=== PATIENT | female | born 1995 | race Caucasian/White ===

== ENCOUNTER → 2017-08-29 12:00 | Outpatient (CLI) | payer OTHER, SELFPAY ==
--- NOTE | 2017-08-29 12:00 | DT_ITS ---
This patient was seen during an EMR downtime August 26, 2017 - September 02, 2017. This patient may have a combination of paper and electronic documentation or all paper documentation. All documentation is viewable within the e-chart portion of [employer] for each patient visit.
[2017-09-03 06:21] LABS: Cholesterol 131 mg/dL (200); Glucose 78 mg/dL (74-106); Hemoglobin A1c 5.1 % (4.2-6.3); High Density Lipoprotein 64 mg/dL; Triglycerides 47 mg/dL; Very Low Density Lipoprotein 9 mg/dL (5-40)
== END ==
PROVIDERS: Visit Provider Obstetrics & Gynecology
DX: Z12.4 Encounter for screening for malignant neoplasm of cervix (principal); A60.04 Herpesviral vulvovaginitis; Z13.29 Encounter for screening for other suspected endocrine disorder
CPT/HCPCS: 36415; 80061; 82947; 83036

== ENCOUNTER → 2017-08-30 23:45 | Outpatient (CLI) | payer OTHER, SELFPAY ==
--- NOTE | 2017-08-30 23:45 | DT_ITS ---
This patient was seen during an EMR downtime August 26, 2017 - September 02, 2017. This patient may have a combination of paper and electronic documentation or all paper documentation. All documentation is viewable within the e-chart portion of [employer] for each patient visit.
[2017-09-07 03:07] LABS: HSV 1 By PCR Negative (Negative)
[2017-09-08 10:20] LABS: HSV 2 By PCR Negative (Negative)
== END ==
PROVIDERS: Visit Provider Obstetrics & Gynecology
DX: A60.04 Herpesviral vulvovaginitis (principal)
CPT/HCPCS: 87529

== ENCOUNTER → 2019-10-20 | Outpatient (CLI) | payer BC, SELFPAY ==
[2017-03-09 01:31] VITALS: BMI 32.8
[2019-10-24 10:46] LABS: HPV Reflexed? NOT INDICATED
== END | disposition home or self-care (01) ==
PROVIDERS: Visit Provider Obstetrics & Gynecology
DX: Z12.4 Encounter for screening for malignant neoplasm of cervix (principal)
CPT/HCPCS: 88175; G0145

== ENCOUNTER → 2019-11-23 13:48 | Outpatient (CLI) | payer BC, SELFPAY ==
[2019-11-26 09:04] LABS: Chlamydia By Nucleic Acid AMP Negative (Negative)
[2019-11-26 09:17] LABS: Gonococcus By Nucleic Acid AMP Negative (Negative)
== END ==
PROVIDERS: Visit Provider Obstetrics & Gynecology
DX: Z11.3 Encounter for screening for infections with a predominantly sexual mode of transmission (principal)
CPT/HCPCS: 87491; 87591

== ENCOUNTER → 2020-06-28 | Outpatient (CLI) | payer BC, SELFPAY ==
[2017-03-09 01:31] VITALS: BMI 32.8
== END | disposition home or self-care (01) ==
LOC: LABSPEC 15:20
PROVIDERS: Visit Provider Student in an Organized Health Care Education/Training Program
DX: N76.0 Acute vaginitis (principal)

== ENCOUNTER → 2021-02-14 15:51 | Outpatient (CLI) | payer BC, SELFPAY ==
[2021-02-14 17:45] LABS: Absolute Lymphocyte Count 1.87 X10^3/uL (0.83-4.51); Absolute Neutrophil Count 3.4 X10^3/uL (2.0-7.7); Basophil# 0.03 X10^3/uL; Basophil% 0.5 % (0-1); Eosinophil# 0.03 X10^3/uL; Eosinophils% 0.5 % (0-5); Hemoglobin 12.9 g/dL (12.0-15.0); Lymphocyte # 1.87 X10^3/ul (0.83-4.51); Mean Corp Hgb Conc 33.1 g/dL (32-36); Mean Corpuscular Hgb 29.5 pg (27.0-32.0); Mean Corpuscular Volume 89.2 fL (81-99); Mean Platelet Vol. 11.1 fl (6.2-12.0); Monocyte# 0.51 X10^3/uL; Monocyte% 8.7 % (0-10); NRBC Flagged by Analyzer 0 % (0-5); Neutrophil # 3.38 X10^3/uL (2.7-7.7); Platelet Count 244 K/mm3 (150-450); RBC Distribution Width CV 12.1 % (11.6-14.6); RBC Distribution Width SD 39.9 fl (35.1-43.9); Red Blood Count 4.37 M/mm3 (4.2-5.4); White Blood Count 5.8 K/mm3 (4.4-11.0)
[2021-02-14 18:07] LABS: Estradiol 153.7 pg/mL
[2021-02-14 18:14] LABS: Color, Urine Yellow (Yellow); Glucose, Dipstick Normal (Normal); Ketone-Dipstick Negative (Negative); Leukocyte Esterase-Dipstick Negative /ul (Negative); Nitrite-Dipstick Negative (Negative); Occult Blood-Urine Negative /ul (Negative); Protein-Dipstick Negative (Negative); Urine Bilirubin Dipstick Negative (Negative); Urine Clarity Clear (Clear); Urine Urobilinogen Normal (Normal); Urine pH 6.5 (5.0 - 8.0)
[2021-02-14 18:53] LABS: Amphetamine Urine VISTA NEGATIVE (<1000 ng/mL); Barbiturate Urine VISTA NEGATIVE (< 200 ng/mL); Benzodiazepine Urine VISTA NEGATIVE (< 200 ng/mL); Cocaine Urine VISTA NEGATIVE (< 300 ng/mL); Ecstacy Urine VISTA NEGATIVE (< 500 ng/mL); Methadone Urine VISTA NEGATIVE (< 300 ng/mL); PCP Urine VISTA NEGATIVE (< 25 ng/mL); THC Urine VISTA NEGATIVE (< 50 ng/mL); Vista UDS pH Range 6
[2021-02-15 09:06] LABS: HIV - WCH Non-Reactive (Nonreactive); Hepatitis B Surface Antigen Non-Reactive (Nonreactive); Hepatitis C Antibody Non-Reactive (Nonreactive); Progesterone Level 6.98 ng/mL (See Comment); Syphilis Antibodies Non-reactive
[2021-02-18 13:07] LABS: Chlamydia By Nucleic Acid AMP Negative (Negative)
[2021-02-18 13:43] LABS: Gonococcus By Nucleic Acid AMP Negative (Negative)
== END ==
PROVIDERS: Visit Provider Obstetrics & Gynecology
DX: Z34.81 Encounter for supervision of other normal pregnancy, first trimester (principal)
CPT/HCPCS: 36415; 80307; 81002; 82670; 84144; 84443; 85025; 86703; 86762; 86780; 86803; 87086; 87088; 87340; 87491; 87591

== ENCOUNTER → 2021-03-02 16:25 | Outpatient (CLI) | payer BC, SELFPAY ==
[2021-03-02 17:36] LABS: Estradiol 638.8 pg/mL
[2021-03-02 18:20] LABS: Progesterone Level 201.48 ng/mL (See Comment)
== END ==
LOC: LAB.FUTURE 16:26 → LAB 16:41
PROVIDERS: Visit Provider Obstetrics & Gynecology
DX: O26.891 Other specified pregnancy related conditions, first trimester (principal); E28.9 Ovarian dysfunction, unspecified; Z3A.00 Weeks of gestation of pregnancy not specified
CPT/HCPCS: 36415; 82627; 82670; 84144; 82626

== ENCOUNTER → 2021-03-22 08:54 | Outpatient (CLI) | payer BC, SELFPAY ==
[2021-03-22 09:58] LABS: Progesterone Level 52.72 ng/mL (See Comment)
[2021-03-22 11:03] LABS: Estradiol 1877.9 pg/mL
== END ==
PROVIDERS: Visit Provider Obstetrics & Gynecology
DX: O20.0 Threatened abortion (principal)
CPT/HCPCS: 36415; 82627; 82670; 84144; 82626

== ENCOUNTER 2021-04-12 15:01 | Outpatient (CLI) | payer BC, SELFPAY ==
[2021-04-12 17:52] LABS: Progesterone Level 118.18 ng/mL (See Comment)
== END 2021-04-12 23:59 | disposition short-term general hospital (02) ==
LOC: WOBLAB 15:03
PROVIDERS: Visit Provider Obstetrics & Gynecology
DX: Z34.81 Encounter for supervision of other normal pregnancy, first trimester (principal)
CPT/HCPCS: 36415; 84144

== ENCOUNTER → 2021-07-25 | Outpatient (CLI) | payer BC, SELFPAY ==
[2021-07-25 14:01] LABS: Hematocrit 34.6 % (37-47); Hemoglobin 11.7 g/dL (12.0-15.0); Mean Corp Hgb Conc 33.8 g/dL (32-36); Mean Corpuscular Hgb 31.5 pg (27.0-32.0); Mean Corpuscular Volume 93.3 fL (81-99); Mean Platelet Vol. 10.4 fl (6.2-12.0); Platelet Count 174 K/mm3 (150-450); RBC Distribution Width CV 13.4 % (11.6-14.6); RBC Distribution Width SD 45.4 fl (35.1-43.9); Red Blood Count 3.71 M/mm3 (4.2-5.4)
[2021-07-25 15:35] LABS: Glucose Challenge Gest 1H 50g 130 mg/dL (70-140)
== END | disposition home or self-care (01) ==
PROVIDERS: Visit Provider Obstetrics & Gynecology
DX: Z34.83 Encounter for supervision of other normal pregnancy, third trimester (principal)
CPT/HCPCS: 36415; 82950; 85027; 86850

== ENCOUNTER → 2021-09-22 | Outpatient (CLI) | payer OTHER, SELFPAY | END | disposition home or self-care (01) | LOC: LABSPEC 16:16 | PROVIDERS: Visit Provider Obstetrics & Gynecology | DX: Z36.85 Encounter for antenatal screening for Streptococcus B (principal) | CPT/HCPCS: 87081 ==

== ENCOUNTER 2021-10-12 06:35 | Inpatient (IN) | payer OTHER, SELFPAY ==
[2021-10-12] VITALS (18 sets, daily range): BP systolic 90–109; BP diastolic 51–67; PULSE 62–86; RESP 14–18; TEMP 36.3–36.8; O2SAT 95–100; BMI 32.9
[2021-10-12] MEDS: Lactated Ringers 1,000 ML 999 ML IV (06:40)
[2021-10-12] MEDS: Acetaminophen 500 MG Tablet 1000 MG PO ×2 (06:58→18:31)
[2021-10-12 07:02] LABS: Absolute Lymphocyte Count 2.08 X10^3/uL (0.83-4.51); Absolute Neutrophil Count 4.8 X10^3/uL (2.0-7.7); Basophil# 0.02 X10^3/uL; Basophil% 0.3 % (0-1); Hematocrit 36.2 % (37-47); Hemoglobin 12.3 g/dL (12.0-15.0); Lymphocyte # 2.08 X10^3/ul (0.83-4.51); Lymphocyte % 28.7 % (19-41); Mean Corpuscular Hgb 30.8 pg (27.0-32.0); Mean Corpuscular Volume 90.5 fL (81-99); Mean Platelet Vol. 11.5 fl (6.2-12.0); Monocyte# 0.34 X10^3/uL; Monocyte% 4.7 % (0-10); NRBC Flagged by Analyzer 0 % (0-5); Neutrophil # 4.79 X10^3/uL (2.7-7.7); Neutrophil % 65.9 % (47-70); Platelet Count 135 K/mm3 (150-450); RBC Distribution Width CV 12.7 % (11.6-14.6); RBC Distribution Width SD 41.9 fl (35.1-43.9); White Blood Count 7.3 K/mm3 (4.4-11.0)
[2021-10-12] MEDS: Sodium Citrate/Citric Acid 30 ML UDC PO (07:17)
[2021-10-12] MEDS: Cefazolin 2 GM in 0.9% Normal Saline 100 ML IV (07:35)
--- NOTE | 2021-10-12 07:40 | HP.PCM_ITS ---
History and Physical Date of Admission: 10/12/21 ACOG ANTEPARTUM RECORD - HISTORY AND PHYSICAL (10/12/2021) Name: SUSI PADILLA History of this : This is a 26 year old [id number] presents at 40 wks + 1 days gestation in active labor. care is remarkable for patient desiring an elective with sterilization. 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 : 1995 Age: 26 Address: [address] [place] [address] Phone: (H) [phone] (O) [phone] Insurance Carrier: [facility] [id number] Emergency Contact: TRAM PADILLA [phone] ...................................................................... Final WELLINGTON: 10/11/21 By Ultrasound: 5 weeks 6 days PARITY: (G-Total Pregnancies P-Fullterm,Premature,Induced AB,Spont AB, Ectopics, Multiple,Living) WELL[place] CONFIRMATION: By LMP: 12/22/20 Initial Exam: 10/11/21 By First Ultrasound Exam: 10/11/21 Final WELLINGTON: 10/11/21 OB PROBLEM LIST: ALLERGIC TO SULFA! 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 Job Description - [employer] Illicit Drug Use - denies use of street drugs Sexual Activity - single sexual partner and Residence - Lives with Place of - [place], [place] Hours Worked - FT Spouse-Sig Other Name - Tram Padilla Spouse-Sig Other Occupation - Self-Employed Spouse-Sig Other Phone No - [phone] Children Name(s) - Puneet '17 PRIOR DELIVERY HISTORY DEL DATE GEST LAB WT LB WT OZ TYPE ANES LABOR TX 17 Mar 10 40 31 8 15 Vacuu Epidural No 30 Sep 21 6 0 0 0 Sab None No ANTEPARTUM FLOW CHART VISIT RTC FU F F LA U U DATE WK MD WKS HT PN HR M SS BP ED WT LA GL D EF ST __ ____ ___ __ __ ___ __ __ __ ___ __ __ __ ___ __ Sep SHM 1 39 V + + 124/86 sl 198 - - Sep 39 SHM 1 38 V + + 104/76 sl 198 1+ - 3 50 -3 08 Royce 38 SHM 1 38 V + + 102/74 sl 201 tr - 1+ 50 -3 Sep SHM 1 37 V + + 120/72 1+ 198 tr - 1 50 -3 14 Aug SHM 2 34 V + + 90/62 1+ 198 - - 22 August 32 SHM 2 33 V + + 100/60 sl 196 1+ - 17 August 21 SHM 2 31 ? + + 100/70 sl 193 tr - 03 August 19 SHM 2 31 on + 96/60 sl 189 tr - Jul 16 SHM 4 24 ? + + 110/74 0 187 tr - 02 Jun 11 SHM 4 20 + O 102/60 0 182 tr - Apr 07 SHM 4 + o 108/68 0 173 ne ne Mar 03 JMW 4 U+ O 110/70 0 172 - - ANTEPARTUM NOTE(S): Oct 11 2021: Here for Pre-op for Primary Oct 10 2021: see note Sep 29 2021: Ctxs-occas, Good FM.occas tingling in fingers Sep 22 2021: see note Sep 05 2021: getting more uncomfortable Aug 22 2021: doing well Aug 08 2021: see note Jul 25 2021: Jun 23 2021: glucola given May 24 2021: comp u/s today Apr 12 2021: Feels well, Mar 15 2021: doing well COMPREHENSIVE ANTEPARTUM NOTE(S): Oct 11 2021: Susi presents here today at 40 weeks and plans to have questions answered and sign consents for Primary and BTO scheduled for Saturday10/13/21 at 1200 with JM. Good FM and reports periodic fatigue. JDRN Oct 11 2021: , bilateral salpingectomy consents reviewed. Discussed risks, benefits, labor as alternative. Consents signed. Pt questions answered to her satisfaction and ERAS prep, anticipated hospitalization reviewed. Oct 10 2021: Susi is here for visit. She is s/p Covid and doing pretty well except for continued congestion. Interested in cervix ck today. Hoping for labor. Induction now on Saturday. Good mvmt and minimal edema. Off work at this time which has helped signficantly with edema. LMT Oct 10 2021: Membranes stripped. Pt inquires about scheduled with tubal vs. IOL. Reviewed risks, benefits for mother and baby for . Pt understands unscheduled more risky of delivery modes. Sep 27 2021: H taken to OB. tkg Sep 22 2021: US today EFW 4337g - 9lb9oz (90th%), cephalic, BRODIE 9.8cm. HC/AC 0.97. Recommend IOL at at 39-40wga. 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 GBS obtained. Sep 22 2021: Susi is here for visit. She is more uncomfortable and wanting to get a note to be off work. GBS today. LARC declined. Increased edema. LMT Induction paperwork faxed and scheduled for 10/05 @ 7 am. LMT Sep 05 2021: Reviewed FM, PTL, PROM. GBS next visit. LMT Sep 05 2021: Reviewed IOL indications, timing of delivery, cervix check indications. GBS due next visit. Aug 22 2021: Doing well. Reviewed FM, PTL. LMT Aug 08 2021: Susi is here for visit. She is doing well except she notes that when baby is in certain positions she feels SOB. She can easily get relief if she can get him to move. Reviewed FM, PROM, and PTL. Had Tdap. LMT Jul 25 2021: Susi is here for US and visit. Enjoying US pictures. Baby active. Has some edema in lower legs w left sl more than right. Plans support hose. Labs drawn and RhoGAM 1500IU given LUOQ IM and card given. Having many BH contr daily. DRYunior. Jul 25 2021: Intermittent LE edema. She ordered compression stockings and started using maternity belt for long days standing at work with lead apron on. PTL, FM precautions. US today with EFW 1831g (>97.7th%), BRODIE 14.8cm. ANTERIOR PLACENTA with resolution of margial previa. Ok for . Plan rpt US at 36wga. Discussed PPBC. Pt plans Liletta IUD. She is considering if desires tubal if unplanned C/S occurs. Jun 23 2021: Increased round ligament discomfort and pressure. Encouraged maternity support belt. Glucola given with instructions. LMT Jun 23 2021: Plans epidural in labor. Circ planned. Discussed maternity belt. May 24 2021: Susi is here for visit and comp u/s. She relates that she has had a couple of episodes of feeling overheated, weak, and pale. If she eats sx improve. Encouraged her to add more protein to her diet q 3 hours. Tends to happen more in the early part of the day. Encouraged protein snack before bed and protein for breakfast. She is having muscle spasms and her Chiropractor recommended magne May 24 2021: Anatomy scan wnl, EFW 90th%, MALE, low lying placenta at 2cm from os. Will plan vaginal delivery, however repeat US in 3rd trimester, anticipate resolution. Circ planned. Brxton Yolette, PTL precautions. Mg ok for recent muscle cramps. Apr 12 2021: Had US in [place], it's another BOY!!! Declines aneuploidy or carrier screening. Progesterone level today. Repeat level today. Plan to d/c based on level or at 16wga. Mar 15 2021: Susi is here for PNV and US doing well still has slight nausea. Would like to know if it is ok to take both progesterone tablets once at night instead of twice a day. BR Mar 15 2021: Susi is here for her NOB visit following US and PNV with Dr. Marrufo, she is a 26 year old G3 P 1 A1 with an WELLINGTON of 10/11/2021, and current GA us 10 w 0 d. She resides with her , Tram, and their 4 year old son, Puneet. Her son was delivered vaginally with vac assist at [facility]. Past history updated. Delivery at [facility] is planned with an epidural, and she plans to breastfeed. Susi REVIEW OF SYSTEMS: GENERAL - Denies fever, or chills SKIN - Denies rash, new skin lesions, or change in moles EYES - Denies blurred vision, or change in visual acuity EARS - Denies ear pain, or difficulty hearing NOSE - Denies nasal congestion, discharge, or bleeding MOUTH - Denies sore throat, or difficulty swallowing NECK - Denies pain or swelling RESPIRATORY - Denies shortness of breath, cough, wheezing CARDIOVASCULAR - Denies palpitations, chest pain, orthopnea, PND, peripheral edema, syncope or claudication GASTROINTESTINAL - Denies nausea, vomiting, diarrhea, constipation, Denies abdominal pain, melena and or bright red blood GENITOURINARY - Denies dysuria, frequency of urination, urgency, or hesitancy MUSCULOSKELETAL - Denies joint or muscle pain, or back pain NEUROLOGICAL - Denies localized numbness, weakness, or tingling PSYCHIATRIC - Denies depression, anxiety, substance abuse or suicide attempts ENDOCRINE - Denies heat or cold intolerance, weight loss or gain, increasing thirst HEMATO-IMMUNOLOGIC - Denies easy bruising, bleeding, oral ulcerations or recurrent infections GENETICS SCREENING: Age 35+ years: No Thalassemia: No Neural Tube Defect: No Down Syndrome: No BRANDEN-SACHS: No Sickle Cell Disease: No Hemophilia: No Musc. Dystrophy: No Cystic Fibrosis: No-declines screening [place] Chorea: No Mental Retardation: No Fragile X: No Other genetic: No Other defects: No SABs/still births: No Drugs since LMP: No INFECTION HISTORY: High risk AIDS: No High risk Hepatitis: No Exposed to TB: No Exposed to Herpes: No Rash/viral illness since LMP: No History of STD: No MENSTRUAL HISTORY: *Menses Amount/Duration: 5 daysMenses Regularity: RegularFrequency: monthlyMenarche (Age Onset): 10* PAST SUMMARY: PARITY: 1. Total Pregnancies............ 3 2. Full Term Pregnancies........ 1 3. Premature.................... 0 4. Abortions - Induced.......... 0 5. Abortions - Spontaneous...... 1 6. Ectopics..................... 0 7. Multiple Births.............. 0 8. Living Children.............. 1 PAST #1: Date of :.................. 03/10/17 Gestation Weeks:................ 40 Length of labor(hours):......... 31 Sex:............................ M Weight-lbs:............... 8 Weight-oz:................ 15 Type of Delivery:............... Vacuum Type of Anesthesia:............. Epidural Place of Delivery:.............. [place] Treatment of Labor?:.... No Comment: SROM 03/08/2017 PAST #2: Date of :.................. 12/22/20 Gestation Weeks:................ 6 Length of labor(hours):......... 0 Sex:............................ Weight-lbs:............... 0 Weight-oz:................ 0 Type of Delivery:............... Sab Type of Anesthesia:............. None Place of Delivery:.............. none Treatment of Labor?:.... No Comment: PHYSICAL EXAMINATION General Appearence: 26 yo female in no acute distress Vital Signs: AF, VSS Heart: RRR without rubs or gallops Lungs: CTA x 2 Breasts: deferred Abdomen: gravid Pelvis: Cervix: Presentation: cephalic Station: Fetus: Size: AGA Movement: present Heart: present LAB TEST(S) ORDERED SINCE:01/14/21 03/23/2021 DHEA SULFATE 03/22/2021 PROGESTERONE LEVEL 03/22/2021 ESTRADIOL 03/04/2021 DHEA SULFATE 03/02/2021 PROGESTERONE LEVEL 03/02/2021 ESTRADIOL 02/18/2021 RUBELLA AB IGG 02/18/2021 CHLAMYDIA/GC HOMAR APTIMA 02/16/2021 URINE CULTURE 02/15/2021 PROGESTERONE LEVEL 02/15/2021 L509.8000 02/15/2021 HIV - [facility] 02/15/2021 HEPATITIS C ANTIBODY 02/15/2021 HEPATITIS B SURFACE ANTIGEN 02/14/2021 URINE DRUG SCREEN (VISTA) 02/14/2021 URINALYSIS, ROUTINE (DIPSTICK) 02/14/2021 THYROID STIM HORMONE (TSH) 02/14/2021 T AND S-NO CHARGE W/PNP 02/14/2021 ESTRADIOL 02/14/2021 CBC W/DIFF, AUTOMATED 10/12/2021 CBC W/DIFF, AUTOMATED 09/25/2021 RULE OUT BETA STREP (GRP. B) 07/25/2021 GLUCOSE CHALLENGE GEST 1H 50G 07/25/2021 CBC-COMPLETE BLOOD CNT NO DIFF 07/25/2021 [id number] 04/12/2021 PROGESTERONE LEVEL = = ==== Order Observation Description Value Ref_Range A* Site == ==== CBC W/DIFF, AUT NOTE JENN[facility] CBC W/DIFF, AUT WBC 7.3 K/mm3 4.4-11.0 ML CBC W/DIFF, AUT RBC 4.00 M/mm3 4.2-5.4 L ML CBC W/DIFF, AUT HGB 12.3 g/dL 12.0-15.0 ML CBC W/DIFF, AUT HCT 36.2 37-47 L ML CBC W/DIFF, AUT MCV 90.5 fL 81-99 ML CBC W/DIFF, AUT MCH 30.8 pg 27.0-32.0 ML CBC W/DIFF, AUT MCHC 34.0 g/dL 32-36 ML CBC W/DIFF, AUT RDW CV 12.7 11.6-14.6 ML CBC W/DIFF, AUT RDW SD 41.9 fl 35.1-43.9 ML CBC W/DIFF, AUT PLT 135 K/mm3 150-450 L ML CBC W/DIFF, AUT MPV 11.5 fl 6.2-12.0 ML CBC W/DIFF, AUT NEUT% 65.9 47-70 ML CBC W/DIFF, AUT LY% 28.7 19-41 ML CBC W/DIFF, AUT MONO% 4.7 0-10 ML CBC W/DIFF, AUT EO% 0.0 0-5 ML CBC W/DIFF, AUT BASO% 0.3 0-1 ML CBC W/DIFF, AUT IG% 0.400 0.0-0.9 ML IG% - Immature Granulocytes (promyelocytes, myelocytes and metamyelocytes) > 1% indicates that a LEFT SHIFT is Present. CBC W/DIFF, AUT ABSOLUTE NEUT 4.8 X10 3/uL 2.0-7.7 ML CBC W/DIFF, AUT ABSOLUTE LYMPH 2.08 X10 3/uL 0.83-4.51 ML CBC W/DIFF, AUT NUCLEATED RBC 0 0-5 ML RULE OUT BETA S NOTE [facility]~[address] [place], [address]~ [id number] AB SCREEN GEL NEGATIVE ML GLUCOSE CHALLEN NOTE JENNINGS GLUCOSE CHALLEN GLU GEST 50G 1H 130 mg/dL 70-140 ML CBC-COMPLETE BL NOTE JENNINGS CBC-COMPLETE BL WBC 8.0 K/mm3 4.4-11.0 ML CBC-COMPLETE BL RBC 3.71 M/mm3 4.2-5.4 L ML CBC-COMPLETE BL HGB 11.7 g/dL 12.0-15.0 L ML CBC-COMPLETE BL HCT 34.6 37-47 L ML CBC-COMPLETE BL MCV 93.3 fL 81-99 ML CBC-COMPLETE BL MCH 31.5 pg 27.0-32.0 ML CBC-COMPLETE BL MCHC 33.8 g/dL 32-36 ML CBC-COMPLETE BL RDW CV 13.4 11.6-14.6 ML CBC-COMPLETE BL RDW SD 45.4 fl 35.1-43.9 H ML CBC-COMPLETE BL PLT 174 K/mm3 150-450 ML CBC-COMPLETE BL MPV 10.4 fl 6.2-12.0 ML PROGESTERONE LE NOTE JENNINGS PROGESTERONE LE PROGESTERONE 118.18 ng/mL See Comment ML Progesterone Reference Table: UNITS Female: Follicular 0.15 - 1.40 ng/mL Luteal 3.34 - 25.56 ng/mL Mid-luteal 4.44 - 28.03 ng/mL Postmenopausal 0.0 - 0.73 ng/mL : 1st Trimester 11.22 - 90.00 ng/mL 2nd Trimester 25.55 - 89.40 ng/mL 3rd Trimester 48.40 -422.50 ng/mL DHEA SULFATE NOTE JENNINGS DHEA SULFATE DHEA SULFATE 371.0 ug/dL 84.8-378.0 LCI Performed at: [facility] [address] [place], [place] [id number] Director Agency & Strategic Partnerships: Yvon Patel PhD, Phone: [phone] ESTRADIOL NOTE JENNINGS ESTRADIOL ESTRADIOL 1877.9 pg/mL ML NORMAL REFERENCE RANGES FEMALE FOLLICULAR 21.4 - 164.8 pg/mL MID-CYCLE PEAK 49.9 - 367.2 pg/mL LUTEAL 40.2 - 259.0 pg/mL POST-MENOPAUSAL ON MHT <11.0 - 462.1 pg/mL NOT ON MHT <11.0 - 58.3 pg/mL MALE <11.0 - 52.5 pg/mL NOTE: [employer] HAS CONFIRMED THE DRUG FULVETRANT (FASLODEX) MAY CAUSE FALSELY ELEVATED ESTRADIOL RESULTS WHEN USING THIS TEST METHOD. IF PATIENT IS TAKING FULVESTRANT AN ALTERNATIVE METHOD SHOULD BE USED TO DETERMINE ESTRADIOL CONCENTRATION. PROGESTERONE LE NOTE JENNINGS PROGESTERONE LE PROGESTERONE 52.72 ng/mL See Comment ML Progesterone Reference Table: UNITS Female: Follicular 0.15 - 1.40 ng/mL Luteal 3.34 - 25.56 ng/mL Mid-luteal 4.44 - 28.03 ng/mL Postmenopausal 0.0 - 0.73 ng/mL : 1st Trimester 11.22 - 90.00 ng/mL 2nd Trimester 25.55 - 89.40 ng/mL 3rd Trimester 48.40 -422.50 ng/mL DHEA SULFATE NOTE JENNINGS DHEA SULFATE DHEA SULFATE 510.0 ug/dL 84.8-378.0 H LCI Performed at: [facility] [employer] [id number] Director Agency & Strategic Partnerships: Yvon Patel PhD, Phone: [phone] PROGESTERONE LE NOTE JENNINGS PROGESTERONE LE PROGESTERONE 201.48 ng/mL See Comment ML Progesterone Reference Table: UNITS Female: Follicular 0.15 - 1.40 ng/mL Luteal 3.34 - 25.56 ng/mL Mid-luteal 4.44 - 28.03 ng/mL Postmenopausal 0.0 - 0.73 ng/mL : 1st Trimester 11.22 - 90.00 ng/mL 2nd Trimester 25.55 - 89.40 ng/mL 3rd Trimester 48.40 -422.50 ng/mL ESTRADIOL NOTE JENNINGS ESTRADIOL ESTRADIOL 638.8 pg/mL ML NORMAL REFERENCE RANGES FEMALE FOLLICULAR 21.4 - 164.8 pg/mL MID-CYCLE PEAK 49.9 - 367.2 pg/mL LUTEAL 40.2 - 259.0 pg/mL POST-MENOPAUSAL ON MHT <11.0 - 462.1 pg/mL NOT ON MHT <11.0 - 58.3 pg/mL MALE <11.0 - 52.5 pg/mL NOTE: [employer] HAS CONFIRMED THE DRUG FULVETRANT (FASLODEX) MAY CAUSE FALSELY ELEVATED ESTRADIOL RESULTS WHEN USING THIS TEST METHOD. IF PATIENT IS TAKING FULVESTRANT AN ALTERNATIVE METHOD SHOULD BE USED TO DETERMINE ESTRADIOL CONCENTRATION. CHLAMYDIA/GC NA NOTE JENNINGS CHLAMYDIA/GC NA CHLAMY,NUC ACID Negative Negative LCI CHLAMYDIA/GC NA GC BY NUC ACID Negative Negative LCI Performed at: =G - [facility] [address] [id number] Director Agency & Strategic Partnerships: Cindy Yin MD, Phone: [phone] RUBELLA AB IGG NOTE JENNINGS RUBELLA AB IGG RUBELLA AB, IGG 3.55 index Immune >0.99 LCI Non-immune <0.90 Equivocal 0.90 - 0.99 Immune >0.99 Performed at: - [facility] [address] [id number] Director Agency & Strategic Partnerships: Yvon Patel PhD, Phone: [phone] URINE CULTURE NOTE JENNINGS HEPATITIS C ANT NOTE JENNINGS HEPATITIS C ANT HEPATITIS C AB Non-Reactive Nonreactive ML Non Reactive: < 0.8 Equivocal: >/= 0.8 to < 1.0 Reactive: >/= 1.0 The CDC recommends that a reactive/equivocal HCV antibody result be followed up by the HCV Nucleic Acid Amplification test (887587) HEPATITIS B KIERSTEN NOTE JENNINGS HEPATITIS B KIERSTEN HEP B SURF AG Non-Reactive Nonreactive ML HIV - [facility] NOTE JENNINGS HIV - [facility] HIV Non-Reactive Nonreactive ML L509.8000 NOTE JENNINGS L509.8000 SYPHILIS ABS Non-reactive ML PROGESTERONE LE NOTE JENNINGS PROGESTERONE LE PROGESTERONE 6.98 ng/mL See Comment ML Progesterone Reference Table: UNITS Female: Follicular 0.15 - 1.40 ng/mL Luteal 3.34 - 25.56 ng/mL Mid-luteal 4.44 - 28.03 ng/mL Postmenopausal 0.0 - 0.73 ng/mL : 1st Trimester 11.22 - 90.00 ng/mL 2nd Trimester 25.55 - 89.40 ng/mL 3rd Trimester 48.40 -422.50 ng/mL PN N [facility]~[address] [place], [address]~ T AND AB SCREEN GEL NEGATIVE ML URINALYSIS, ROU NOTE JENNINGS URINALYSIS, ROU COLOR Yellow Yellow ML URINALYSIS, ROU URINE CLARITY Clear Clear ML URINALYSIS, ROU GLUCOSE, UR Normal mg/dl Normal ML URINALYSIS, ROU BILIRUBIN URINE Negative mg/dL Negative ML URINALYSIS, ROU KETONE UR Negative mg/dl Negative ML URINALYSIS, ROU SP.GR. DIPSTX 1.010 1.002-1.030 ML URINALYSIS, ROU PH UR 6.5 5.0 - 8.0 ML URINALYSIS, ROU PROT DIPSTX Negative mg/dl Negative ML URINALYSIS, ROU UROBILI Normal mg/dl Normal ML URINALYSIS, ROU NITRITE Negative Negative ML URINALYSIS, ROU OCCULT BLOOD-UR Negative /ul Negative ML URINALYSIS, ROU LEUK ESTERASE Negative /ul Negative ML URINE DRUG SCRE NOTE JENNINGS URINE DRUG SCRE VISTA UDS PH 6 ML URINE DRUG SCRE AMPHETAMINES NEGATIVE <1000 ng/mL ML URINE DRUG SCRE BARBITIURATES NEGATIVE < 200 ng/mL ML URINE DRUG SCRE BENZODIAZIPINE NEGATIVE < 200 ng/mL ML URINE DRUG SCRE COCAINE NEGATIVE < 300 ng/mL ML URINE DRUG SCRE ECSTACY NEGATIVE < 500 ng/mL ML URINE DRUG SCRE METHADONE NEGATIVE < 300 ng/mL ML URINE DRUG SCRE OPIATES NEGATIVE < 300 ng/mL ML URINE DRUG SCRE PCP NEGATIVE < 25 ng/mL ML URINE DRUG SCRE THC NEGATIVE < 50 ng/mL ML ESTRADIOL NOTE JENNINGS ESTRADIOL ESTRADIOL 153.7 pg/mL ML NORMAL REFERENCE RANGES FEMALE FOLLICULAR 21.4 - 164.8 pg/mL MID-CYCLE PEAK 49.9 - 367.2 pg/mL LUTEAL 40.2 - 259.0 pg/mL POST-MENOPAUSAL ON MHT <11.0 - 462.1 pg/mL NOT ON MHT <11.0 - 58.3 pg/mL MALE <11.0 - 52.5 pg/mL NOTE: [facility] HAS CONFIRMED THE DRUG FULVETRANT (FASLODEX) MAY CAUSE FALSELY ELEVATED ESTRADIOL RESULTS WHEN USING THIS TEST METHOD. IF PATIENT IS TAKING FULVESTRANT AN ALTERNATIVE METHOD SHOULD BE USED TO DETERMINE ESTRADIOL CONCENTRATION. THYROID STIM HO NOTE JENNINGS THYROID STIM HO TSH 0.90 uIU/mL 0.358-3.74 ML CBC W/DIFF, AUT NOTE JENNINGS CBC W/DIFF, AUT WBC 5.8 K/mm3 4.4-11.0 ML CBC W/DIFF, AUT RBC 4.37 M/mm3 4.2-5.4 ML CBC W/DIFF, AUT HGB 12.9 g/dL 12.0-15.0 ML CBC W/DIFF, AUT HCT 39.0 37-47 ML CBC W/DIFF, AUT MCV 89.2 fL 81-99 ML CBC W/DIFF, AUT MCH 29.5 pg 27.0-32.0 ML CBC W/DIFF, AUT MCHC 33.1 g/dL 32-36 ML CBC W/DIFF, AUT RDW CV 12.1 11.6-14.6 ML CBC W/DIFF, AUT RDW SD 39.9 fl 35.1-43.9 ML CBC W/DIFF, AUT PLT 244 K/mm3 150-450 ML CBC W/DIFF, AUT MPV 11.1 fl 6.2-12.0 ML CBC W/DIFF, AUT NEUT% 58.0 47-70 ML CBC W/DIFF, AUT LY% 32.0 19-41 ML CBC W/DIFF, AUT MONO% 8.7 0-10 ML CBC W/DIFF, AUT EO% 0.5 0-5 ML CBC W/DIFF, AUT BASO% 0.5 0-1 ML CBC W/DIFF, AUT IG% 0.300 0.0-0.9 ML IG% - Immature Granulocytes (promyelocytes, myelocytes and metamyelocytes) > 1% indicates that a LEFT SHIFT is Present. CBC W/DIFF, AUT ABSOLUTE NEUT 3.4 X10 3/uL 2.0-7.7 ML CBC W/DIFF, AUT ABSOLUTE LYMPH 1.87 X10 3/uL 0.83-4.51 ML CBC W/DIFF, AUT NUCLEATED RBC 0 0-5 ML Group B Beta Streptococcus is not isolated. Mixed Gram Positive Organisms [place] Count 1000-10,000 MIXC Mixed contaminants. Submit a new specimen if indicated. O NEGATIVE == ==== Impression /Plan: 40 wks + 1 days intrauterine in labor for elective and bilateral salpingectomy. Preparations in progress for delivery.
--- NOTE | 2021-10-12 08:00 | FALS_PTH ---
PATIENT: AZEEM PADILLA LOC: [facility] U#:[id number] AGE/SX: 26/F ROOM: WP003 RE10/12/[address]: Dr. Sudarshan Marrufo MD : 1995 BED: 1 DIS: 10/14/2021 SPEC #: [id number] RECD: 10/12/21 12:19 STATUS: SHAINA RECandice #: [id number] JHOAN: 10/12/21 08:[address]: Sudarshan Marrufo DEPT: SURGICAL PATHOLOGY RECD BY: Maria De Jesus Richardson ENTERED: 10/13/21 08:11 SP TYPE: FALL TUBES OTHR DR: No Primary Care Phys Tissues: Fallopian tube Procedures: Surgery Specimen Level II HEADER OPERATION: Tubal ligation PRE-OP DIAGNOSIS: Sterilization TISSUE SUBMITTED: Fallopian tubes, tie on left MICROSCOPIC DIAGNOSIS Bilateral fallopian tubes, salpingectomy: Bilateral fallopian tubes, no pathologic diagnosis. CESAR:nael 10/16/2021 COMMENT Case has been reviewed in consultation with Dr. Shafer who concurs with the above diagnosis. IDC:AM MICROSCOPIC DESCRIPTION Slides are reviewed. GROSS DESCRIPTION Received in fixative is one container labeled with the patient's name and designated fallopian tubes, stitch on left. The specimen consists of two fallopian tubes with an average length of 6 cm and has an average diameter of 0.8 cm. Both fallopian tubes have normal fimbriated ends. No mass lesions are identified. Facilities Locator sections are submitted in two cassettes as follows: 1 - right fallopian tube, 2??left fallopian tube. / AM:nael 10/13/2021 TC:4 CPT: 79416 x2
--- NOTE | 2021-10-12 08:51 | EX.PCM.OBRPT ---
Maternal Data Information Final [place]: 10/11/21 Final [place] Source: [place] <20 weeks Gestational age: 40 weeks 1 day gestation Details Operative Information Date of Procedure: 10/12/21 Pre-Operative Diagnosis: Elective Section, Desires Permanent Sterilization Post-Operative Diagnosis: Elective Section, Desires Permanent Sterilization, Macrosomia Classification: MEGAN Procedure Type: bilateral salpingectomy contact finger assembler #1: Ramona Banuelos Type of Anesthesia: Spinal (With Duramorph) Anesthesiologist: Eb Díaz Antibiotic Given: Ancef 2 grams IV x1 Drain: Franklin to straight drain Estimated Blood Loss: 500 cc Fluids Replaced: Crystalloid Findings Description of Procedure: Surgeon: Sudarshan Marrufo MD, FACOG Procedure: Primary Low Transverse Cervical Caesarean Section And Bilateral Salpingectomy Findings: Viable male infant with Apgars of 9/9 weighing 10 pounds 7 ounces in an occiput anterior presentation with clear amniotic fluid and normal three-vessel placenta. Indication: This is a 26-year-old who presents for her first at 40+ weeks gestation. She presented to labor and delivery in labor and was scheduled to have an elective tomorrow. care has otherwise been uneventful except for a recent ultrasound showing her baby weighing more than 10 pounds. Patient also desires permanent sterilization. The patient has been counseled regarding the risk and indications of this procedure including the possibility of bleeding infection and injury to surrounding structures such as bowel bladder. She also understands the permanent nature of sterilization, a failure rate of 1 to 2%, and the availability of other nonpermanent control options. All questions were answered. Procedure: Patient was taken to the operating room where after spinal anesthesia was placed, the patient was prepped and draped in usual sterile fashion and a Franklin catheter was placed. The abdomen was entered through a Pfannenstiel incision and peritoneum was entered bluntly. After developing a bladder flap on the lower uterine segment a low transverse incision was made on the uterus and head was easily delivered onto the operative field the nose mouth and oropharynx were bulb suctioned. Subsequently a viable male infant was born with Apgars of 9/9. The infant was noted to cry move all extremities vigorously on the operative field. The umbilical cord was doubly clamped and ligated and infant handed to the nursery personnel who were present for the delivery. Placenta was delivered and noted to be 3 vessels and normal. Uterus was exteriorized and remaining placental tissue was removed. The uterus was then closed in 2 layers first with running locked 0 Vicryl suture followed by a second imbricating layer with 0 Vicryl suture. 0 Vicryl suture was then used in a horizontal mattress interrupted fashion to affect final hemostasis of the uterine incision line. Normal fallopian tubes and ovaries were visualized and the fallopian tubes were ligated at the mesosalpinx with the LigaSure device. The uterus was returned to the pelvis. Hemostasis was noted and rectus abdominis muscles were reapproximated in the midline with interrupted Number 0 Vicryl suture in a horizontal mattress fashion. Fascia was closed with running Number 1 PDS Strata fix suture. Subcutaneous tissue was irrigated with copious amounts of saline solution and then closed with running 3-0 Vicryl suture. Skin was closed with 4-0 monocryl suture in a running subcuticular fashion. Steri strips and a Mepilex dressing were placed across the incision. The patient tolerated the procedure well and was taken to the recovery room in satisfactory condition. Sponge, needle, and instrument counts were all reportedly correct. EBL was less than 500 cc. Ancef 2 gms IV was given prior to the procedure. Spicemen to Pathology: Bilateral fallopian tubes Complications: None Presentation: Positive for Vertex Amniotic Fluid Description: Clear Placental Delivery Description: Spontaneous Placenta Disposition: [facility] Cord Vessel Description: 3 Vessels Cord Entanglement: None Infant A Gender: Male (1 minute): 9 (5 minute): 9 Complications Risks of Surgery Discussed w/Patient: Bleeding, Infection, Permanency, Failure Rate of 1 to 2%, Injury to surrounding structure(s) including bowel and bladder and Availability of other non-permanent control options Complications: None
[2021-10-12] MEDS: Ketorolac 30 MG/ML Syringe IV ×3 (10:02→23:14)
[2021-10-12] MEDS: Oxytocin 30 units/NS 500 ml 30 UNITS/500 ML IV.SOLN 167 UNITS IV (10:05)
[2021-10-12] MEDS: Lactated Ringers 1,000 ML 100 ML IV ×2 (11:35→17:08)
[2021-10-12 12:18] LABS: Pathology Specimen OB SEE PATHOLOGY REPORT
[2021-10-12] MEDS: Ondansetron 4 MG/2 ML Vial IV (12:43)
[2021-10-12] MEDS: proCHLORPERazine 10 MG/2 ML Vial IV (14:21)
[2021-10-12] MEDS: Cefazolin 1 GM/50 ML BAG IV (17:36)
[2021-10-12] MEDS: 0.9% Saline Lock 10 ML Syringe IV (23:14)
[2021-10-12] MEDS: Enoxaparin 40 MG/0.4 ML Syringe SC (23:52)
[2021-10-13 00:07] VITALS: BP 110/68; PULSE 75; RESP 18; TEMP 36.7; O2SAT 97
[2021-10-13] MEDS: Acetaminophen 500 MG Tablet 1000 MG PO ×4 (01:02→21:31)
[2021-10-13] MEDS: 0.9% Saline Lock 10 ML Syringe IV ×2 (02:07→06:25)
[2021-10-13] MEDS: Cefazolin 1 GM/50 ML BAG IV (02:08)
[2021-10-13 04:12] VITALS: BP 93/57; PULSE 72; RESP 18; TEMP 36.6; O2SAT 96
[2021-10-13 04:25] LABS: Hematocrit 29.4 % (37-47); Hemoglobin 9.6 g/dL (12.0-15.0); Mean Corp Hgb Conc 32.7 g/dL (32-36); Mean Corpuscular Hgb 30.4 pg (27.0-32.0); Platelet Count 117 K/mm3 (150-450); RBC Distribution Width CV 12.9 % (11.6-14.6); RBC Distribution Width SD 44.1 fl (35.1-43.9); Red Blood Count 3.16 M/mm3 (4.2-5.4); White Blood Count 9.7 K/mm3 (4.4-11.0)
[2021-10-13] MEDS: Ketorolac 30 MG/ML Syringe IV (06:23)
--- NOTE | 2021-10-13 07:29 | PCM.PN.OB ---
Subjective Subjective No overnight complaints. Pain well controlled Objective Data Objective Data Vital Signs: Vital Signs Temp Pulse Resp BP Pulse Ox O2 Del Method 98 F 72 18 93/57 L 96 Room Air 10/13/21 04:12 10/13/21 04:12 10/13/21 04:12 10/13/21 04:12 10/13/21 04:12 10/13/21 04:12 Oxygen Delivery Method Room Air Weight: 198 lb Body Mass Index (BMI) 32.9 Intake & Output: Intake and Output for Last 24 Hours 10/11/21 10/12/21 10/13/21 23:59 23:59 23:59 Intake Total 4099.67 / 4099.67 50 / 50 Output Total 1350 / 1350 250 / 250 Balance 2749.67 / 2749.67 -200 / -200 Lab / Micro Data Result Diagrams: 10/13/21 04:17 Labs: Laboratory Results - last 24 hr 10/12/21 06:40: Blood Type O NEGATIVE, Antibody Screen NEGATIVE 10/12/21 10:45: Screen NEGATIVE, Baby's Blood Type O POSITIVE, Baby's BECKI NEGATIVE 10/13/21 04:17: WBC 9.7, RBC 3.16 L, Hgb 9.6 L, Hct 29.4 L, MCV 93.0, MCH 30.4, MCHC 32.7, RDW Std Deviation 44.1 H, RDW Coeff of Chrissy 12.9, Plt Count 117 L, MPV 11.0 Physical Exam Const alert, oriented x3, no apparent distress, average body habitus, healthy appearing and well nourished HEENT normocephalic Eyes PERRL Neck full ROM Resp normal respiratory effort, no retractions and no use of accessory muscles GI GI Narrative: Soft, nontender, bandage clean dry and intact Extremity normal to inspection, full ROM and no clubbing, cyanosis or edema Neuro moves all extremities and no focal motor deficits Psych mental status grossly normal, affect normal, speech normal and activity/motor behavior normal Assessment & Plan (1) delivery delivered: PLAN: Postop day 1 status post elective primary section bilateral tubal ligation at term. Breast-feeding. Likely home tomorrow
[2021-10-13 09:00] VITALS: BP 109/73; PULSE 84; RESP 18; TEMP 36.7; O2SAT 98
[2021-10-13] MEDS: Senna/Docusate Sodium 1 Tablet PO (09:02)
[2021-10-13] MEDS: Ibuprofen 600 MG Tablet PO ×2 (13:57→20:00)
[2021-10-13 14:03] VITALS: BP 119/76; PULSE 80; RESP 18; TEMP 36.6
[2021-10-13 20:35] VITALS: BP 106/67; PULSE 74; RESP 14; TEMP 36.4
[2021-10-13] MEDS: Enoxaparin 40 MG/0.4 ML Syringe SC (22:34)
[2021-10-14] MEDS: oxyCODONE 5 MG Tablet PO (00:37)
[2021-10-14] MEDS: Ibuprofen 600 MG Tablet PO ×3 (02:12→15:45)
[2021-10-14 02:25] VITALS: BP 99/63; PULSE 78; RESP 15; TEMP 36.8
[2021-10-14] MEDS: Acetaminophen 500 MG Tablet 1000 MG PO ×3 (03:31→16:09)
[2021-10-14 08:25] VITALS: BP 92/66; PULSE 65; RESP 16; TEMP 36.8; O2SAT 98
[2021-10-14] MEDS: Senna/Docusate Sodium 1 Tablet PO (10:12)
--- NOTE | 2021-10-14 11:04 | PCM.DC.BLA ---
Discharge Summary Date of Admission: 10/12/21 Date of Discharge: 10/14/21 Summary: Patient arrived on 10/12/2021 in labor and desired primary section and bilateral tubal ligation all performed on 10/12/2021. Patient with routine recovery and discharged home on 10/14/2021 Meaningful Use Info Meaningful Use Diagnoses (Choose all that apply): None applicable Discharge Plan Admission Admit Date/Time: 10/12/21 06:35 Primary Reason for Your Visit: Labor Attending Provider: Sudarshan Marrufo Primary Care Provider: Care Physician,No Primary Instructions Additional Instructions / Restrictions: Regular diet, no heavy lifting over 25 pounds for 2 to 3 weeks, okay to drive when not taking narcotics, okay to shower, no tub baths for 2 weeks, no intercourse for 4 to 6 weeks. Call if chest pain, shortness of breath, increased bleeding. Follow-up 1 week Discharge Orders/Prescriptions Prescriptions: New oxycodone 5 mg Tablet 5 mg PO Q6H PRN PRN (Reason: Pain Score 7-10) 4 Days Qty: 16 0RF Continued Prenatabs FA 1 TABLET tablet 1 tab PO DAILY Ferrous Sulfate 325 mg PO DAILY Label Comments: 1 tablet Daily ibuprofen 800 MG tablet 800 mg PO TID PRN (Reason: Pain) Qty: 30 0RF docusate sodium 100 MG capsule 100 mg PO BID PRN PRN (Reason: Constipation) Qty: 60 0RF Referrals / Follow Up: Care Physician,No Primary [Primary Care Provider] - Disposition Disposition (needs filled in before D/C Order can be placed): Home, Self Care
--- NOTE | 2021-10-14 11:06 | PCM.PN.OB ---
Subjective Subjective No overnight complaints. Pain well controlled. Objective Data Objective Data Vital Signs: Vital Signs Temp Pulse Resp BP Pulse Ox O2 Del Method 98.2 F 65 16 92/66 98 Room Air 10/14/21 08:25 10/14/21 08:25 10/14/21 08:25 10/14/21 08:25 10/14/21 08:25 10/14/21 08:25 Oxygen Delivery Method Room Air Weight: 198 lb Body Mass Index (BMI) 32.9 Intake & Output: Intake and Output for Last 24 Hours 10/12/21 10/13/21 10/14/21 23:59 23:59 23:59 Intake Total 4099.67 / 4099.67 50 / 50 Output Total 1350 / 1350 250 / 250 Balance 2749.67 / 2749.67 -200 / -200 Lab / Micro Data Result Diagrams: 10/13/21 04:17 Physical Exam Const alert, oriented x3, no apparent distress, average body habitus, healthy appearing and well nourished HEENT normocephalic Eyes PERRL Neck full ROM Resp normal respiratory effort, no retractions and no use of accessory muscles GI GI Narrative: Soft, nontender, bandage clean dry Extremity normal to inspection, full ROM and no clubbing, cyanosis or edema Psych mental status grossly normal, affect normal, speech normal and activity/motor behavior normal Assessment & Plan (1) delivery delivered: PLAN: day 2 status post elective primary section bilateral tubal ligation. Okay to discharge home today if okay with paper final inspector
[2021-10-14 15:47] VITALS: BP 100/70; PULSE 78; RESP 18; TEMP 36.7; O2SAT 97
== END 2021-10-14 16:10 | disposition home or self-care (01) | DRG 785 ==
LOC: WPOUT 06:35 → WP 06:35
PROVIDERS: Admitting Provider Obstetrics & Gynecology; Referring Provider Obstetrics & Gynecology; Visit Provider Obstetrics & Gynecology
DX: O36.63X0 Maternal care for excessive fetal growth, third trimester, not applicable or unspecified (principal); Z30.2 Encounter for sterilization; Z37.0 Single live birth; Z3A.40 40 weeks gestation of pregnancy
CPT/HCPCS: 59025; 59050; 85025; 85027; 85461; 86850; 86900; 86901; 88302; 90384; 99218; 99251; J7120; A4216; G0378; G0463; J2405; J2790